=== PATIENT | female | born 1970 | race Caucasian/White ===

== ENCOUNTER → 2017-10-19 | Outpatient (CLI) | payer OTHER ==
[~2017-10-19] MED LIST: ALBU2.5V36 INH; ASP81; AUG875 PO; CIP500 PO; CIPR-344 PO; ENO150PT SQ; FLU150 PO; IBUP400T13 PO; LOR5/325 PO; METR-1 PO; METR250 PO; ONDA4TAB PO; PHEN200T32 PO; PRO25 PO; VITAMINS; WARF4TAB47 PO
--- NOTE | 2017-10-20 08:55 | RADIOLOGY IMAGING REPORT ---
FACILITY: PATIENT NAME: VONNIE CAREY : [id number] MR: [id number] V: [id number] EXAM DATE: [id number] ORDERING PHYSICIAN: JOSE NICOLE TECHNOLOGIST: Lesia Perez PROCEDURE:BILATERAL DIGITAL SCREENING MAMMOGRAM WITH CAD ASSISTED INTERPRETATION & 3D TOMOSYNTHESIS COMPARISON:Prior mammograms 05/17/12, 05/08/12 INDICATIONS:screening FINDINGS: There is a small amount of fibroglandular tissue is seen throughout the breasts. There is a small well circumscribed nodular density in the medial inferior portion of the right breast that has remained stable. There is no evidence of malignant appearing mass, malignant appearing calcifications or other secondary sign of malignancy in either breast. DIAGNOSTIC CATEGORY 2--BENIGN FINDING. RECOMMENDATIONS: ROUTINE MAMMOGRAM AND CLINICAL EVALUATION. IMPRESSION: BIRADS 2: Benign finding No significant abnormality is seen Dictated by: Jordana Fay M.D. on 10/19/2017 at 16:48 Transcribed by: [email or web address] on 10/20/2017 at 8:42 Approved by: Jordana Fay M.D. on 10/20/2017 at 8:54 [facility]
== END ==
LOC: MAMO 01:01
PROVIDERS: ATTEND Nurse Practitioner Family
DX: Z12.31 Encounter for screening mammogram for malignant neoplasm of breast (principal)
CPT/HCPCS: 77063; 77067